=== PATIENT | male | born 1965 | race Caucasian/White ===

== ENCOUNTER 2018-03-31 16:48 | Emergency (ER) | payer MEDICAID, OTHER ==
[2018-03-31] MEDS ORDERED: Aspirin 81 mg CHEW TAB* 81 MG TAB.CHEW PO ONE (16:56)
[2018-03-31 17:07] VITALS: BP 140/97
--- NOTE | 2018-03-31 17:10 | UC ---
Cardiac HPI - HPI Summary HPI Summary: pt c/o severe left chest and left arm pain x 20 minutes. he notes he is sweaty and SOB. He feels worse with exertion and deep breaths. sibling passed from [place] in 50's and glenroy has had [place] - History of Current Complaint Stated Complaint: CHEST PAIN,SOB,LEFT SIDE PAIN Time Seen by Provider: 03/31/18 16:55 Hx Obtained From: Patient Onset/Duration: Sudden Onset Timing: Constant Associated Signs & Symptoms: Positive: Chest Pain, SOB. Negative: Back Pain - Allergy/Home Medications Allergies/Adverse Reactions: Allergies Allergy/AdvReac Type Severity Reaction Status Date / Time No Known Allergies Allergy Verified 03/31/18 17:07 PMH/Surg Hx/FS Hx/Imm Hx Previously Healthy: Yes Other History Of: Negative For: Anticoagulant Therapy - Surgical History Surgical History: Yes Surgery Procedure, Year, and Place: hernia; adenoids - Family History Known Family History: Positive: Cardiac Disease - Social History Lives: With Family Alcohol Use: Rare Substance Use Type: None, Marijuana Substance Use Comment - Amount & Last Used: marijuana Smoking Status (MU): Heavy Every Day Tobacco Smoker Type: Cigarettes Amount Used/How Often: 1/2 ppd Have You Smoked in the Last Year: Yes Household Exposure Type: Cigarettes Review of Systems Respiratory: Shortness Of Breath Cardiovascular: Chest Pain Is Patient Immunocompromised?: No All Other Systems Reviewed And Are Negative: Yes Physical Exam Triage Information Reviewed: Yes Appearance: Pain Distress Vital Signs Reviewed: Yes Eyes: Positive: Conjunctiva Clear ENT: Positive: Normal ENT inspection Neck: Positive: Supple, Nontender, No Lymphadenopathy Respiratory: Positive: Lungs clear, Normal breath sounds, No respiratory distress Cardiovascular: Positive: No Murmur, Pulses Normal - BUE's, Tachycardia - 100 Abdomen Description: Positive: Nontender, No Organomegaly, Soft. Negative: Distended, Guarding Bowel Sounds: Positive: Present Musculoskeletal: Positive: ROM Intact, No Edema Neurological: Positive: Alert Psychological: Positive: Age Appropriate Behavior Skin Exam: Other - warm and moist. Skin: Negative: rashes Diagnostics - EKG Cardiac Rate: Tachycardia Cardiac Rhythm: Sinus: Normal Ectopy: None ST Segment: Normal - Assessment/Plan Course Of Treatment: no acute ischemia on ekg. tx asa here. report given to viviana ARGUETA at [facility] ER. advised of severe cp, L arm pain and strong FMH CAD. - Differential Diagnoses - Chest Pain Differential Diagnosis/HQI/PQRI: Acute MO, ACS, Angina, Aortic Aneurysm, Pulmonary Embolism, Other: - PTX - Clinical Impression Provider Diagnoses: chest pain Discharge - Sign-Out/Discharge Documenting (check all that apply): Patient Departure All imaging exams completed and their final reports reviewed: No Studies - Discharge Plan Condition: Stable Disposition: TRANS HIGHER LVL OF CARE FAC Referrals: Sonia URBINA,Jenny Pastor [Primary Care Provider] - - Billing Disposition and Condition Condition: STABLE Disposition: Trans Higher Lvl of Care Fac
== END 2018-03-31 17:13 | disposition short-term general hospital (02) ==
LOC: UCCORT 16:48
DX: R07.9 Chest pain, unspecified (principal); M79.602 Pain in left arm; R06.02 Shortness of breath; F17.210 Nicotine dependence, cigarettes, uncomplicated
CPT/HCPCS: 93005; 99213; A9270-GY; G0463

== ENCOUNTER 2024-06-08 13:09 | Inpatient (IN) ==
[2024-06-08 15:09] LABS: ABS Lymphocytes 0.5 10^3/uL (1.0-4.8); ABS Monocytes 0.8 10^3/uL (0.0-1.1); ABS Neutrophils 8.8 10^3/uL (1.5-7.6); Eosinophil % 0.1 %; Hematocrit 34.1 % (38-53); Hemoglobin 11.2 g/dL (13.2-16.3); Lymphocyte % 4.5 %; Mean Corpuscular Hemoglobin 28.3 pg (27-33); Mean Corpuscular Hgb Conc 32.7 g/dL (31-36); Mean Corpuscular Volume 86.6 fL (80-97); Mean Platelet Volume 6.9 fL (7.5-11.2); Platelet Count 339 10^3/uL (150-450); Red Blood Count 3.94 10^6/uL (4.06-5.63); Red Cell Distribution Width 15.6 % (12-17); White Blood Count 10.1 10^3/uL (3.6-10.2)
[2024-06-08 15:32] LABS: Albumin 2.9 g/dL (3.2-5.2); Albumin/Globulin Ratio 0.9 (1-3); C Reactive Protein 115.84 mg/L (<8.01); Calcium 8.8 mg/dL (8.6-10.3); Creatinine, Serum 0.65 mg/dL (0.67-1.17); Globulin 3.4 g/dL (2-4); Potassium 4.5 mmol/L (3.5-5.0); Total Bilirubin 0.5 mg/dL (0.2-1.0); Total Protein 6.3 g/dL (6.4-8.9); eGFR CKD-EPI 107.9 (>60)
[2024-06-08] MEDS: Magnesium CITRATE LIQ 300 ML BTL PO ONE (15:56)
[2024-06-08] MEDS: Sodium Phosphate ADULT ENEMA 133 ML BTL PR ONE (15:58)
[2024-06-08] MEDS: Iohexol 350 (CONTRAST) 500 ML MDV IV ONE (17:12)
[2024-06-08 17:58] LABS: Urine Appearance Clear; Urine Bilirubin Negative (Negative); Urine Blood Negative (Negative); Urine Color Yellow; Urine Glucose Negative (Negative); Urine Ketones Negative (Negative); Urine Nitrite Negative (Negative); Urine Protein 1+ (>=30 mg/dL) (Negative); Urine Specific Gravity 1.038 (1.002-1.030); Urine Urobilinogen 2+ (Negative)
[2024-06-08 18:46] LABS: Urine Bacteria Absent /HPF (Absent); Urine Red Blood Cell 2+(6-10/hpf) /HPF (0-Trace); Urine White Blood Cell Trace(0-5/hpf) /HPF (0-Trace)
[2024-06-08] MEDS: Polyethylene Glycol 3350 BTL 238 GM BTL PO ONE (19:44)
[2024-06-08] MEDS ORDERED: Albuterol HFA INHALER 8 gm MDI INH PRN (22:45)
[2024-06-08] MEDS: Enoxaparin 40 MG/0.4 ML SYR SUBCUT SCH (23:21)
[2024-06-09] MEDS: CMCS:FLUTICAS/UMECLI/VILANT 100-62.5-25 MDI (NF) INH SCH (08:40)
[2024-06-09 10:33] LABS: ABS Lymphocytes 0.5 10^3/uL (1.0-4.8); ABS Monocytes 0.8 10^3/uL (0.0-1.1); Eosinophil % 0.2 %; Hematocrit 31.6 % (38-53); Hemoglobin 10.5 g/dL (13.2-16.3); Lymphocyte % 4.7 %; Mean Corpuscular Hemoglobin 28.7 pg (27-33); Mean Corpuscular Hgb Conc 33.1 g/dL (31-36); Mean Corpuscular Volume 86.8 fL (80-97); Mean Platelet Volume 6.6 fL (7.5-11.2); Platelet Count 322 10^3/uL (150-450); Red Blood Count 3.64 10^6/uL (4.06-5.63); Red Cell Distribution Width 15.8 % (12-17); White Blood Count 10.3 10^3/uL (3.6-10.2)
[2024-06-09 11:24] LABS: Albumin 2.7 g/dL (3.2-5.2); Albumin/Globulin Ratio 0.8 (1-3); Calcium 8.4 mg/dL (8.6-10.3); Creatinine, Serum 0.64 mg/dL (0.67-1.17); Globulin 3.2 g/dL (2-4); Potassium 4.2 mmol/L (3.5-5.0); Total Bilirubin 0.4 mg/dL (0.2-1.0); Total Protein 5.9 g/dL (6.4-8.9); eGFR CKD-EPI 108.4 (>60)
[2024-06-09] MEDS: Dexamethasone IV 4 MG/ML VIAL 1 ml VIAL IV SLOW PU ONE (17:15)
[2024-06-09] MEDS ORDERED: Dexamethasone IV 4 MG/ML VIAL 1 ml VIAL IV SLOW PU SCH (18:00)
[2024-06-09] MEDS: Pantoprazole VIAL 40 MG VIAL IV SCH (20:31)
[2024-06-10] MEDS: Dexamethasone IV 4 MG/ML VIAL 1 ml VIAL IV SLOW PU SCH (00:43)
[2024-06-10 07:00] LABS: ABS Lymphocytes 0.3 10^3/uL (1.0-4.8); ABS Monocytes 0.4 10^3/uL (0.0-1.1); ABS Neutrophils 8.1 10^3/uL (1.5-7.6); Hematocrit 34.3 % (38-53); Hemoglobin 11.3 g/dL (13.2-16.3); Lymphocyte % 3.6 %; Mean Corpuscular Hemoglobin 28.6 pg (27-33); Mean Corpuscular Volume 86.7 fL (80-97); Mean Platelet Volume 6.9 fL (7.5-11.2); Platelet Count 325 10^3/uL (150-450); Red Blood Count 3.96 10^6/uL (4.06-5.63); Red Cell Distribution Width 15.8 % (12-17); White Blood Count 8.8 10^3/uL (3.6-10.2)
[2024-06-10 07:05] LABS: Calcium 8.4 mg/dL (8.6-10.3); Creatinine, Serum 0.64 mg/dL (0.67-1.17); Potassium 4.5 mmol/L (3.5-5.0); eGFR CKD-EPI 108.4 (>60)
[2024-06-10] MEDS ORDERED: Senna TAB 8.6 mg TAB PO PRN (08:02)
[2024-06-10] MEDS ORDERED: Polyethylene Glycol 3350 17 GM PACKET PO PRN (08:02)
[2024-06-10] MEDS ORDERED: Magnesium Hydroxide LIQ 30 ML UDC PO PRN (08:02)
[2024-06-10] MEDS: Magnesium Hydroxide LIQ 30 ML UDC PO SCH (08:41)
[2024-06-11 06:21] LABS: ABS Lymphocytes 0.4 10^3/uL (1.0-4.8); ABS Monocytes 0.7 10^3/uL (0.0-1.1); ABS Neutrophils 10.7 10^3/uL (1.5-7.6); Hematocrit 32.9 % (38-53); Hemoglobin 10.8 g/dL (13.2-16.3); Lymphocyte % 3.6 %; Mean Corpuscular Hemoglobin 28.4 pg (27-33); Mean Corpuscular Hgb Conc 32.9 g/dL (31-36); Mean Corpuscular Volume 86.2 fL (80-97); Platelet Count 342 10^3/uL (150-450); Red Blood Count 3.82 10^6/uL (4.06-5.63); Red Cell Distribution Width 15.6 % (12-17); White Blood Count 11.9 10^3/uL (3.6-10.2)
[2024-06-11 06:37] LABS: Calcium 8.3 mg/dL (8.6-10.3); Creatinine, Serum 0.67 mg/dL (0.67-1.17); Magnesium 2.1 mg/dL (1.9-2.7); Potassium 4.5 mmol/L (3.5-5.0); eGFR CKD-EPI 106.2 (>60)
[2024-06-11] MEDS: Polyethylene Glycol 3350 17 GM PACKET PO PRN (08:48)
[2024-06-11] MEDS: oxyCODONE SR 15 mg TAB PO SCH (10:46)
[2024-06-11 16:19] LABS: Ferritin 219.2 ng/mL (24-336)
[2024-06-11] MEDS: Sodium Phosphate ADULT ENEMA 133 ML BTL PR ONE (18:16)
[2024-06-12 06:37] LABS: ABS Lymphocytes 0.4 10^3/uL (1.0-4.8); ABS Monocytes 0.6 10^3/uL (0.0-1.1); ABS Neutrophils 11.9 10^3/uL (1.5-7.6); ABS Nucleated RBC 0.01 10^3/ul; Hemoglobin 11.6 g/dL (13.2-16.3); Lymphocyte % 3.1 %; Mean Corpuscular Hgb Conc 33.2 g/dL (31-36); Mean Corpuscular Volume 87.3 fL (80-97); Mean Platelet Volume 6.9 fL (7.5-11.2); Platelet Count 377 10^3/uL (150-450); Red Cell Distribution Width 15.9 % (12-17); White Blood Count 12.9 10^3/uL (3.6-10.2)
[2024-06-12 06:49] LABS: Albumin 2.9 g/dL (3.2-5.2); Albumin/Globulin Ratio 0.9 (1-3); Calcium 8.6 mg/dL (8.6-10.3); Creatinine, Serum 0.7 mg/dL (0.67-1.17); Globulin 3.4 g/dL (2-4); Potassium 4.2 mmol/L (3.5-5.0); Total Bilirubin 0.4 mg/dL (0.2-1.0); Total Protein 6.3 g/dL (6.4-8.9); eGFR CKD-EPI 104.8 (>60)
[2024-06-12] MEDS ORDERED: Sodium Phosphate ADULT ENEMA 133 ML BTL PR PRN (08:57)
[2024-06-12 15:05] LABS: Hepatitis B Surface Antigen Nonreactive (Nonreactive)
[2024-06-12 15:10] LABS: Hepatitis A Ab IgM Negative (Negative)
[2024-06-12 15:11] LABS: Hepatitis B Core IgM Nonreactive (Nonreactive)
[2024-06-12 15:23] LABS: Hepatitis C Antibody Negative (Negative)
[2024-06-12] MEDS: Morphine 2 MG/ML SYRINGE IV PRN (15:48)
[2024-06-12] MEDS: Morphine ER 15 mg TAB ** extended release PO SCH (21:27)
[2024-06-13 06:26] LABS: ABS Lymphocytes 0.5 10^3/uL (1.0-4.8); ABS Monocytes 0.5 10^3/uL (0.0-1.1); Hemoglobin 11.2 g/dL (13.2-16.3); Lymphocyte % 4.3 %; Mean Corpuscular Hemoglobin 28.6 pg (27-33); Mean Corpuscular Hgb Conc 32.8 g/dL (31-36); Mean Platelet Volume 6.8 fL (7.5-11.2); Platelet Count 381 10^3/uL (150-450); Red Blood Count 3.91 10^6/uL (4.06-5.63); Red Cell Distribution Width 16.3 % (12-17)
[2024-06-13 06:48] LABS: Albumin 2.8 g/dL (3.2-5.2); Albumin/Globulin Ratio 0.8 (1-3); Calcium 8.5 mg/dL (8.6-10.3); Creatinine, Serum 0.74 mg/dL (0.67-1.17); Globulin 3.3 g/dL (2-4); Potassium 4.4 mmol/L (3.5-5.0); Total Bilirubin 0.4 mg/dL (0.2-1.0); Total Protein 6.1 g/dL (6.4-8.9); eGFR CKD-EPI 103.1 (>60)
[2024-06-13] MEDS: Morphine ER 15 mg TAB ** extended release PO ONE (10:07)
[2024-06-13] MEDS: Morphine ER 15 mg TAB ** extended release PO SCH (13:23)
[2024-06-13] MEDS: Sodium Phosphate ADULT ENEMA 133 ML BTL PR ONE (15:07)
[2024-06-13] MEDS: Senna TAB 8.6 mg TAB PO SCH (21:17)
[2024-06-14] MEDS: Morphine ER 15 mg TAB ** extended release PO SCH (05:06)
[2024-06-14 14:43] VITALS: BP 115/79
== END 2024-06-14 15:20 | disposition home or self-care (01) | DRG 343 ==
LOC: ED 13:09 → EDHOLD 13:09 → SUATTDRO 22:15 → MEDTELE 23:25 → SUATTDRO 06-10 09:10
PROVIDERS: ADMIT Internal Medicine; ATTEND Student in an Organized Health Care Education/Training Program